=== PATIENT | male | born 1950 | race Caucasian/White ===

== ENCOUNTER 2017-02-12 07:51 | Day surgery (SDC) | payer OTHER ==
[2017-02-12] VITALS (8 sets, daily range): BP systolic 96–170; BP diastolic 51–83; PULSE 44–55; RESP 16–20; TEMP 96.6–97.7; O2SAT 96–100
[~2017-02-12] VITALS: Ht 180.3 cm; Wt 82.7 kg
[2017-02-12] MEDS ORDERED: IBUP-988 PO (08:21)
[2017-02-12] MEDS ORDERED: SODIUM CHLOR 0.9% 1000 ML IV SCH ×2 (08:30→09:00)
[2017-02-12] MEDS ORDERED: MIDAZOLAM HCL 5 MG/5 ML VIAL ONE (09:13)
[2017-02-12] MEDS ORDERED: fentaNYL CITRATE 250 MCG/5 ML AMP ONE (09:13)
[2017-02-12] MEDS ORDERED: HYDROmorphone HCL 2 MG TAB PO PRN (10:15)
--- NOTE | 2017-02-12 10:20 | RADRPT ---
EXAM DATE/TIME: 02/12/2017 09:30 [place] COMPARISON: No previous studies available for comparison. INDICATIONS : Chronic active viral Hepatitis B. SEDATION TIME: 30 minutes BIOPSY SITE: Right MEDICATION(S): 1.) 2 mg midazolam (Versed) IV 2.) 100 mcg fentanyl (Sublimaze) IV DEVICE(S): 1.) 18 gauge Temno core biopsy needle MEDICAL HISTORY : None. SURGICAL HISTORY : None. ENCOUNTER: Initial ACUITY: 1 day PAIN SCORE: 0/10 LOCATION: Right A total of two core specimen(s) were obtained and sent to the laboratory for pathologic evaluation. PROCEDURE: 1. CT guided liver biopsy. 2. Conscious sedation with continuous EKG and oximetry monitoring. 3. EKG and oximetry remained stable throughout the procedure. Prior to the procedure informed consent was obtained. Any appropriate prior imaging studies were rev iewed. Using automated exposure control and adjustment of the mA and/or kV according to patient size, radiat ion dose was kept as low as reasonably achievable to obtain optimal diagnostic quality images. The site was prepped in a sterile fashion. Full sterile technique was used, including cap, mask, violette rile gloves and gown and a large sterile sheet. Hand hygiene and 2% chlorhexidine and/or betadine/al cohol prep was utilized per protocol for cutaneous antisepsis. The skin and subcutaneous tissues wer e infiltrated with local anesthetic solution. With CT guidance the right lobe of the liver was localized. Biopsy was performed using the prescribed needle as above. Adequate hemostasis was obtained with compression at the puncture site. Follow-up CT scan reveals no hemorrhage. The patient tolerated the procedure well and there were no complications. The patient was returned to the Radiology Outpatient Unit in stable condition. CONCLUSION: Uncomplicated CT guided biopsy of the liver. Alexander Vega MD on February 12, 2017 at 10:18 Board Certified Radiologist. This report was verified electronically.
== END 2017-02-12 13:53 | disposition home or self-care (01) ==
LOC: HRAD 07:51 → HRIP 07:58 → HRAD 13:53
PROVIDERS: ATTEND Hospitalist
DX: B18.1 Chronic viral hepatitis B without delta-agent (principal)
CPT/HCPCS: 47000; 77012; 88307; 88313; 88341; 88342; J2250; J3010; J7030